=== PATIENT | male | born 1950 | race Caucasian/White ===

== ENCOUNTER 2016-10-29 14:48 | Outpatient (CLI) | payer MEDICARE ==
[2016-07-27 00:05] VITALS: BP 130/60
== END 2016-10-29 14:50 ==
LOC: NEPHRO 14:48
PROVIDERS: ATTEND Internal Medicine Nephrology
DX: I12.9 Hypertensive chronic kidney disease with stage 1 through stage 4 chronic kidney disease, or unspecified chronic kidney disease (principal); N18.9 Chronic kidney disease, unspecified; N17.9 Acute kidney failure, unspecified
CPT/HCPCS: G0463

== ENCOUNTER 2016-12-30 14:54 | Outpatient (CLI) | payer MEDICARE ==
[2016-07-27 00:05] VITALS: BP 130/60
== END 2016-12-30 14:55 ==
LOC: NEPHRO 14:54
PROVIDERS: ATTEND Internal Medicine Nephrology
DX: N18.3 Chronic kidney disease, stage 3 (moderate) (principal)
CPT/HCPCS: G0463

== ENCOUNTER 2017-03-03 15:58 | Outpatient (CLI) | payer MEDICARE ==
[2016-07-27 00:05] VITALS: BP 130/60
== END 2017-03-03 16:00 ==
LOC: NEPHRO 15:58
PROVIDERS: ATTEND Internal Medicine Nephrology
DX: N18.9 Chronic kidney disease, unspecified (principal); D63.1 Anemia in chronic kidney disease
CPT/HCPCS: G0463

== ENCOUNTER 2017-04-28 15:22 | Outpatient (CLI) | payer MEDICARE ==
[2016-07-27 00:05] VITALS: BP 130/60
== END 2017-04-28 15:23 ==
LOC: NEPHRO 15:22
PROVIDERS: ATTEND Internal Medicine Nephrology
DX: N18.9 Chronic kidney disease, unspecified (principal); N17.9 Acute kidney failure, unspecified; E21.1 Secondary hyperparathyroidism, not elsewhere classified
CPT/HCPCS: G0463

== ENCOUNTER 2017-07-07 14:38 | Outpatient (CLI) | payer MEDICARE ==
[2016-07-27 00:05] VITALS: BP 130/60
== END 2017-07-07 14:40 ==
LOC: NEPHRO 14:38
PROVIDERS: ATTEND Internal Medicine Nephrology
DX: N18.6 End stage renal disease (principal)
CPT/HCPCS: G0463

== ENCOUNTER 2017-07-26 14:29 | Emergency (ER) | payer MEDICARE ==
[2017-07-26 14:47] VITALS: BP 151/87
--- NOTE | 2017-07-26 14:53 | ED Physician Documentation ---
General Adult - HISTORIAN Historian: patient, other (family member) - HPI Stated Complaint: Left Hip Pain Chief Complaint: General Adult Onset: days ago Timing: still present Severity: moderate Further Comments: yes (Pt is a 66 yo male with pain in the musculature laterally over L hip. Pt was seen by his provider who rx'd flexeril. Pt has kidney dz and cannot use NSAIDS. Pt has PMHx bladder cancer.) - ROS CONST: no problems EYES/ENT: none CVS/RESP: none GI/: none MS/SKIN/LYMPH: other (L hip pain) - PAST HX Past History: other (bladder cancer, kidney dz) Allergies/Adverse Reactions: Allergies Allergy/AdvReac Type Severity Reaction Status Date / Time iodine Allergy Intermediate Verified 07/26/17 14:41 Home Medications: Ambulatory Orders Medication Instructions Recorded Calcitriol [Rocaltrol] 0.25 mcg PO D 07/26/16 amLODIPine BESYLATE [Norvasc] 10 mg PO D 07/26/16 Cyclobenzaprine HCl [Flexeril] 5 mg PO TID PRN 07/26/17 - SOCIAL HX Smoking History: non-smoker - FAMILY HX Family History: No - VITAL SIGNS Vital Signs: Vital Signs Temp Pulse Resp BP Pulse Ox 97.1 F L 82 18 151/87 98 07/26/17 14:30 07/26/17 14:30 07/26/17 14:30 07/26/17 14:30 07/26/17 14:30 - REVIEWED ASSESSMENTS Nursing Assessment Reviewed: Yes Vitals Reviewed: Yes Progress - Progress Progress: Rx [place] (5/325). 1 po q 4-6 h prn #15. General Adult Physical Exam - PHYSICAL EXAM GENERAL APPEARANCE: mild distress EENT: pharynx normal NECK: normal inspection, supple RESPIRATORY: no resp distress, chest non-tender, breath sounds normal CVS: reg rate & rhythm, heart sounds normal BACK: normal inspection, no CVA tenderness SKIN: warm/dry, normal color EXTREMITIES: other (tenderness to palpation in musculature lateral to L hip. Pain is superficial, not involving joint. ) NEURO: oriented X3, motor nml, sensation nml Discharge Clincal Impression: Musculoskeletal pain Referrals: Jakob Ramsey [Primary Care Provider] - Condition: Stable Disposition: 01 HOME, SELF-CARE Decision to Admit: NO Decision Time: 14:53
[2017-07-26] MEDS: HYDROcodone /APAP 5/325 1 EACH TABLET PO ONE (15:00)
[2017-07-27 05:34] LABS: APPEARANCE,URINE CLEAR (CLEAR); COLOR,URINE YELLOW (YELLOW); OCCULT BLOOD,URINE TRACE-INTACT (NEGATIVE); UROBILINOGEN URINE 0.2 Eu (0.2-1.0)
== END 2017-07-26 15:02 | disposition home or self-care (01) ==
LOC: ED 14:29
DX: M79.1 Myalgia (principal)
CPT/HCPCS: 81002; A9270; 99283

== ENCOUNTER 2017-09-08 15:06 | Outpatient (CLI) | payer MEDICARE | END 2017-09-08 15:07 | LOC: NEPHRO 15:06 | PROVIDERS: ATTEND Internal Medicine Nephrology | DX: N18.4 Chronic kidney disease, stage 4 (severe) (principal); N25.0 Renal osteodystrophy; D63.1 Anemia in chronic kidney disease; I10 Essential (primary) hypertension | CPT/HCPCS: G0463 ==

== ENCOUNTER 2017-11-03 15:19 | Outpatient (CLI) | payer MEDICARE | END 2017-11-03 15:20 | LOC: NEPHRO 15:19 | PROVIDERS: ATTEND Internal Medicine Nephrology | DX: N18.4 Chronic kidney disease, stage 4 (severe) (principal); N25.0 Renal osteodystrophy; D63.1 Anemia in chronic kidney disease; E87.6 Hypokalemia | CPT/HCPCS: G0463 ==

== ENCOUNTER 2018-01-05 15:11 | Outpatient (CLI) | payer MEDICARE | END 2018-01-05 15:12 | LOC: NEPHRO 15:11 | PROVIDERS: ATTEND Internal Medicine Nephrology | DX: N18.5 Chronic kidney disease, stage 5 (principal); I10 Essential (primary) hypertension; E21.3 Hyperparathyroidism, unspecified | CPT/HCPCS: G0463 ==

== ENCOUNTER 2018-03-16 14:24 | Outpatient (CLI) | payer MEDICARE | END 2018-03-16 14:26 | LOC: NEPHRO 14:24 | PROVIDERS: ATTEND Internal Medicine Nephrology | DX: N18.9 Chronic kidney disease, unspecified (principal); E21.3 Hyperparathyroidism, unspecified; I10 Essential (primary) hypertension; D63.1 Anemia in chronic kidney disease; F84.0 Autistic disorder | CPT/HCPCS: G0463 ==

== ENCOUNTER 2018-05-25 10:01 | Outpatient (CLI) | payer MEDICARE ==
--- NOTE | 2018-05-25 14:17 | Diagnostic Imaging Report ---
[facility] [id number] [id number] Report Submission Date: May 25, 2018 1:45:30 PM CDT Patient Study Name: CHINEDU GONZALEZ Date: May 25, 2018 10:16:31 AM CDT Modality Type: US Gender: M Description: : 48 Institution: [facility] Physician: TEA HERRERA Examination: Ultrasound abdomen History: Abdominal complete - history of bladder cancer Findings: Sonographic evaluation of the abdomen demonstrates a gallbladder without stones or sludge. Gallbladder wall is not thickened measuring 1.1 mm. Common bile duct measures 9.3 mm. No intrahepatic biliary dilation. Liver demonstrates increased echogenicity. No mass. Normal flow on color analysis. Normal Doppler waveforms. Right kidney measures 7.6 cm in length. Left kidney measures 7.0 cm in length. Normal cortical margins. No hydronephrosis. Right renal cyst measuring 3.4 cm maximally. Pancreatic region, spleen, and abdominal aorta are without gross irregularity. Impression: No gallstones. Prominent common bile duct at 9.3 mm: Consider obtaining MRCP to further evaluate. Atrophic kidneys. Large right renal cyst. No hydronephrosis. Fatty liver. Electronically signed on May 25, 2018 1:45:30 PM CDT by: Sunny SRINIVASAN
== END 2018-05-25 13:50 ==
LOC: RAD 10:01
PROVIDERS: ATTEND Family Medicine
DX: R10.12 Left upper quadrant pain (principal)
CPT/HCPCS: 76700

== ENCOUNTER 2018-06-08 14:41 | Outpatient (CLI) | payer MEDICARE | END 2018-06-08 14:42 | LOC: NEPHRO 14:41 | PROVIDERS: ATTEND Internal Medicine Nephrology | DX: I12.9 Hypertensive chronic kidney disease with stage 1 through stage 4 chronic kidney disease, or unspecified chronic kidney disease (principal); E21.3 Hyperparathyroidism, unspecified | CPT/HCPCS: G0463 ==

== ENCOUNTER 2018-10-19 15:38 | Outpatient (CLI) | payer MEDICARE | END 2018-10-19 15:40 | LOC: NEPHRO 15:38 | PROVIDERS: ATTEND Internal Medicine Nephrology | DX: I12.0 Hypertensive chronic kidney disease with stage 5 chronic kidney disease or end stage renal disease (principal); N18.5 Chronic kidney disease, stage 5; Z85.51 Personal history of malignant neoplasm of bladder | CPT/HCPCS: G0463 ==

== ENCOUNTER 2018-11-30 15:02 | Outpatient (CLI) | payer MEDICARE | END 2018-11-30 15:04 | LOC: NEPHRO 15:02 | PROVIDERS: ATTEND Internal Medicine Nephrology | DX: I12.0 Hypertensive chronic kidney disease with stage 5 chronic kidney disease or end stage renal disease (principal); N18.5 Chronic kidney disease, stage 5; N17.9 Acute kidney failure, unspecified; Z85.51 Personal history of malignant neoplasm of bladder | CPT/HCPCS: 99214; G0463 ==

== ENCOUNTER 2019-03-29 15:06 | Outpatient (CLI) | payer MEDICARE | END 2019-03-29 15:36 | disposition home or self-care (01) | LOC: NEPHRO 15:06 | PROVIDERS: ATTEND Internal Medicine Nephrology | DX: N18.5 Chronic kidney disease, stage 5 (principal); E86.0 Dehydration; R35.8 Other polyuria; N17.9 Acute kidney failure, unspecified; Z85.528 Personal history of other malignant neoplasm of kidney | CPT/HCPCS: 99214 ==

== ENCOUNTER 2019-05-31 14:46 | Outpatient (CLI) | payer MEDICARE | END 2019-05-31 15:16 | LOC: NEPHRO 14:46 | PROVIDERS: ATTEND Internal Medicine Nephrology | DX: N18.5 Chronic kidney disease, stage 5 (principal); N17.9 Acute kidney failure, unspecified; N39.0 Urinary tract infection, site not specified; Z85.528 Personal history of other malignant neoplasm of kidney; Z98.890 Other specified postprocedural states | CPT/HCPCS: 99214; G0463 ==

== ENCOUNTER 2019-07-26 14:46 | Outpatient (CLI) | payer MEDICARE | END 2019-07-26 15:10 | LOC: NEPHRO 14:46 | PROVIDERS: ATTEND Internal Medicine Nephrology | DX: N18.4 Chronic kidney disease, stage 4 (severe) (principal) | CPT/HCPCS: 99213; G0463 ==

== ENCOUNTER 2019-09-13 14:41 | Outpatient (CLI) | payer MEDICARE | END 2019-09-13 15:15 | LOC: NEPHRO 14:41 | PROVIDERS: ATTEND Internal Medicine Nephrology | DX: I12.9 Hypertensive chronic kidney disease with stage 1 through stage 4 chronic kidney disease, or unspecified chronic kidney disease (principal); N18.4 Chronic kidney disease, stage 4 (severe); D63.1 Anemia in chronic kidney disease; Z85.54 Personal history of malignant neoplasm of ureter | CPT/HCPCS: G0463 ==